=== PATIENT | male | born 1980 | race Caucasian/White ===

== ENCOUNTER 2019-01-04 13:35 | Emergency (ER) | payer MEDICAID, MEDICARE ==
--- NOTE | 2019-01-04 14:39 | EDM.PDOC ---
ED HPI GENERAL MEDICAL PROBLEM - General Chief Complaint: General Stated Complaint: JAW AND NECK PAIN Time Seen by Provider: 01/04/19 14:27 Source of Information: Reports: Patient History Limitations: Reports: No Limitations - History of Present Illness INITIAL COMMENTS - FREE TEXT/NARRATIVE: 38 yo Male present with concerns regarding left lower anterior tooth pain. Tooth pain started 2-3 days ago and has progressively worsened. Pain as a constant pressure and stabling pain that worsens with eating, chewing, hot or cold exposure. Patient admits to foul taste or drainage from painful tooth/ teeth. Patient has noted some slight facial swelling and along the gum line. Patient states has noted a chip in the effected tooth for years. Patient has attempted to contacted a dentist for follow-up appointment in the near future but needs referral to community dental clinic. Patient does not have a dentist appointment. Patient has taken any OTC some medications Oragel, to help with pain and/or swelling. The OTC medications minimally improved symptoms. Patient denies any fever, chills, sweats, and shortness of breath, difficulty breathing or swallowing, chest pain, diarrhea, constipation. No pain or burning with urination. No upper respiratory tract symptoms. 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 Social & Family History - Tobacco Use Smoking Status *Q: Current Every Day Smoker Years of Tobacco use: 16 Packs/Tins Daily: 0.5 - Caffeine Use Caffeine Use: Reports: Coffee, Soda, Tea - Recreational Drug Use Recreational Drug Use: No ED ROS GENERAL - Review of Systems Review Of Systems: ROS reveals no pertinent complaints other than HPI. ED EXAM, GENERAL - Physical Exam Exam: See Below Free Text/Narrative:: DENTAL: EXAM General: Alert attentive uncomfortable to due tooth pain. Eyes: Pupils are equal and reactive to light. EOMs intact. Conjunctivae without injection. Nose: Patent bilaterally. Mouth: Chipped tooth/teeth noted left anterior lower incisor jaw. Tooth pain over left anterior lower incisor gum line with slight buccal mucosal swelling noted. Dental apical abscess is not with visualization or palpation over the affected tooth nerve root. Posterior oropharynx: No erythema, tonsillar exudates or enlargement noted. Ears: TMs pearly zambrano, landmarks visualized. Neck: Supple. No midline tenderness. Full range of motion. No meningismus. Mild anterior cervical chain lymphadenopathy noted. Heart: Regular rate and rhythm without murmur. Chest: Clear to auscultation with good respiratory rate. No rhonchi, wheezes or rales heard throughout. No chest wall tenderness to palpation or retractions. Exam Limited By: No Limitations Course - Vital Signs Last Recorded V/S: Last Vital Signs Temp 36.6 C 01/04/19 13:56 Pulse 72 01/04/19 13:56 Resp 16 01/04/19 13:56 BP 144/92 H 01/04/19 13:56 Pulse Ox 98 01/04/19 13:56 - Re-Assessments/Exams Free Text/Narrative Re-Assessment/Exam: Visit Evaluation/Treatment Course: Exam is completed shortly after patient arrived in examination room. [facility] was reviewed for patient's previous visits, past medical history, surgical history, current medications, allergies and immunizations. Offered NSAIDs medications and Dental Nerve Block for pain control. Discussed medications given. Discussed NSAID, Tylenol, mouth wash and Sensodyne tooth paste. Patient is instructed to see or contact dentist of choice for evaluation and further treatment. Patient is given numerous follow-up dental care options. The patient has no questions or continued concerns at time of discharge. 01/04/19 14:31 Departure - Departure Time of Disposition: 14:43 Disposition: Home, Self-Care 01 Clinical Impression: Dental abscess, Infected dental carries - Discharge Information Prescriptions: Naproxen [Naprosyn] 500 mg PO Q8HR PRN #30 tablet PRN Reason: Pain Penicillin V Potassium 500 mg PO Q8HR #30 tab Chlorhexidine Gluconate 0.12% [Peridex 0.12% Rinse] 480 ml MM BID 10 Days #473 ml Instructions: Dental Abscess Referrals: PCP,None [Primary Care Provider] - Forms: ED Department Discharge Additional Instructions: DENTAL 1. ANTIBIOTIC DIRECTED. Antibiotics (Amoxicillin/PCN or Clindamycin). 2. IBUPROFEN or NAPROXEN WITH FOOD DIRECTED FOR INFLAMMATION, PAIN AND SWELLING. 3. Peridex mouth wash as directed. 4. Sensodyne tooth paste apply until pain improves. 5. Tylenol (Acetaminophen) every 6-8 hours for mild to moderate pain 6. CALL YOUR DENTIST OF CHOICE FOR AVAILABLE APPOINTMENT. IF YOU DO NOT HAVE A DENTIST, YOU WILL BE GIVEN THE PHONE NUMBER FOR LOCAL [facility] DENTIST. 7. Referral Letter Completed to [facility]. Discharge Instructions Dental Pain You have been seen today for a toothache. Your pain may be caused by an exposed nerve, an infection (pulpitis), a root abscess (pocket of pus), or other problems. You will need to see a dentist for a solution to your tooth problem. Emergency Department care is only to help control your problem until you can see a dentist; we cannot provide complete dental care. Today, we did not find any sign that your toothache was caused by any dangerous or life-threatening condition, but sometimes symptoms develop over time and cannot be found during an emergency visit, so it is very important that you follow up with your dentist. Please follow-up as instructed by your provider today. Return to the clinic or Local Emergency Department if: You develop a new fever over 100.4F. You cannot open your mouth normally, cannot move your tongue well, or cannot swallow. You have new or increased swelling of your face or neck. You develop drainage of pus or foul smelling material from around your tooth. What can I do to help myself? Take any antibiotic the provider may have prescribed for you today. Avoid very hot or very cold foods as both can cause pain. Make an appointment to see a dentist as soon as possible. Dentists are generally not on-staff at hospitals so we cannot refer to you to dentist but we may be able to provide a list of dental clinics to help you. If you were given a prescription for medicine here today, be sure toread all of the information (including the package insert) that comes with your prescription. This will include important information about the medicine, its side effects, and any warnings that you need to know about. The pharmacist who fills the prescription can provide more information and answer questions you may have about the medicine. If you have questions or concerns that the pharmacist cannot address, please call or return to the Emergency Department. Remember that you can always come back to the Emergency Department if you are not able to see your regular provider in the amount of time listed above, if you get any new symptoms, or if there is anything that worries you. - Assessment/Plan Plan: DENTAL 1. ANTIBIOTIC DIRECTED. Antibiotics (Amoxicillin/PCN or Clindamycin). 2. IBUPROFEN or NAPROXEN WITH FOOD DIRECTED FOR INFLAMMATION, PAIN AND SWELLING. 3. Peridex mouth wash as directed. 4. Sensodyne tooth paste apply until pain improves. 5. Tylenol (Acetaminophen) every 6-8 hours for mild to moderate pain 6. CALL YOUR DENTIST OF CHOICE FOR AVAILABLE APPOINTMENT. IF YOU DO NOT HAVE A DENTIST, YOU WILL BE GIVEN THE PHONE NUMBER FOR LOCAL [facility] DENTIST. 7. Referral Letter Completed to [facility].
== END 2019-01-04 15:02 | disposition home or self-care (01) ==
LOC: JP.ED 13:35
DX: K04.7 Periapical abscess without sinus (principal); K02.9 Dental caries, unspecified; F17.210 Nicotine dependence, cigarettes, uncomplicated; Z79.899 Other long term (current) drug therapy
CPT/HCPCS: 99283

== ENCOUNTER 2019-03-06 19:54 | Emergency (ER) | payer MEDICAID ==
[2019-03-06] MEDS ORDERED: cefTRIAXone 1 GM Vial IM ONE (20:47)
[2019-03-06] MEDS ORDERED: Ketorolac 60 MG/2 ML SDV IM ONE (20:50)
[2019-03-06] MEDS ORDERED: HYDROmorphone 1 MG/ML Syringe IM ONE (20:51)
--- NOTE | 2019-03-06 21:05 | EDM.PDOC ---
ED HPI GENERAL MEDICAL PROBLEM - General Chief Complaint: ENT Problem Stated Complaint: TOOTH INFECTION LEFT SIDE OF MOUTH Time Seen by Provider: 03/06/19 20:59 History Limitations: Reports: No Limitations - History of Present Illness INITIAL COMMENTS - FREE TEXT/NARRATIVE: 38 years old male patient presented with chief complaint of left lower toothache has been going on for a month. Was seen a month ago was given antibiotic prescription and he did not fill it because he could could not afford it. Come in today was left sided facial swelling, worsening pain. Denies any fever. Denies any chest pain or shortness breath. No difficulty swallowing or breathing. Denies any dizziness. 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 Neurological History: Reports: Other (See Below) Other Neuro History: rare form of polyneuropathy Psychiatric History: Reports: ADD, Anxiety, Panic Attack, PTSD Social & Family History - Tobacco Use Smoking Status *Q: Current Every Day Smoker Years of Tobacco use: 18 Packs/Tins Daily: 0.5 - Caffeine Use Caffeine Use: Reports: Energy Drinks, Soda - Recreational Drug Use Recreational Drug Use: No ED ROS ENT - Review of Systems Review Of Systems: ROS reveals no pertinent complaints other than HPI. ED EXAM, ENT - Physical Exam Exam: See Below Exam Limited By: No Limitations General Appearance: Alert, WD/WN, No Apparent Distress Ears: Normal External Exam, Normal Canal, Hearing Grossly Normal, Normal TMs Nose: Normal Inspection, Normal Mucousa, No Blood Mouth/Throat: Dental Abcess, Dental Pain, Dental Tenderness. No: Oral Ulcers, Peritonsillar Mass, Pharyngeal Erythema, Throat Pain, Throat Swelling, Tongue Swelling, Tonsillar Erythema, Tonsillar Exudates Head: Atraumatic, Normocephalic Neck: Normal Inspection, Supple, Non-Tender, Full Range of Motion Respiratory/Chest: No Respiratory Distress, Lungs Clear, Normal Breath Sounds, No Accessory Muscle Use, Chest Non-Tender Cardiovascular: Normal Peripheral Pulses, Regular Rate, Rhythm, No Edema, No Gallop, No JVD, No Murmur, No Rub GI/Abdominal: Normal Bowel Sounds, Soft, Non-Tender, No Organomegaly, No Distention, No Abnormal Bruit, No Mass Back: Normal Inspection, Full Range of Motion Extremities: Normal Inspection, Normal Range of Motion, Non-Tender, No Pedal Edema, Normal Capillary Refill Neurological: Alert, Oriented, CN II-XII Intact, Normal Cognition, Normal Gait, Normal Reflexes, No Motor/Sensory Deficits Skin: Warm, Dry, Intact, Normal Color, No Rash Course - Vital Signs Last Recorded V/S: Last Vital Signs Temp 36.8 C 03/06/19 20:09 Pulse 84 03/06/19 20:09 Resp 14 03/06/19 20:09 BP 139/89 03/06/19 20:09 Pulse Ox 97 03/06/19 20:09 - Orders/Labs/Meds Meds: Medications Discontinued Medications Generic Name Dose Route Start Last Admin Trade Name Zahida PRN Reason Stop Dose Admin Ceftriaxone Sodium 1 gm 03/06/19 20:47 Rocephin IM 03/06/19 20:48 ONETIME ONE Hydromorphone HCl 1 mg 03/06/19 20:51 Dilaudid IM 03/06/19 20:52 ONETIME ONE Ketorolac Tromethamine 60 mg 03/06/19 20:50 Toradol IM 03/06/19 20:51 ONETIME ONE - Radiology Interpretation Free Text/Narrative:: Patient was seen and examined shortly after arrival. Stable. Patient stated that still could not afford antibiotic. Patient was givn 1 g IM Rocephin, 60 milligrams IM Toradol, 1 mg IM Dilaudid. Was given a referral for community dentist in the morning at 8:15.am. Advised to come back if symptom worsen. Advised to continue use Tylenol or ibuprofen as needed for pain, Orajel, do not drive oral. Machines when taking narcotics. Patient agrees with the plan. Stable for discharge. Departure - Departure Time of Disposition: 21:05 Disposition: Home, Self-Care 01 Condition: Good, Fair Clinical Impression: Dental abscess - Discharge Information Instructions: Dental Abscess Referrals: PCP,None [Primary Care Provider] - Care Plan Goals: Follow-up with the dentist in the morning. Come back if symptom worsen Use Tylenol or ibuprofen as needed for pain Orajel Do not drive or operate machines been taking narcotic - Assessment/Plan Plan: Follow-up with the dentist in the morning. Come back if symptom worsen Use Tylenol or ibuprofen as needed for pain Orajel Do not drive or operate machines been taking narcotic
[2019-03-06] MEDS ORDERED: oxyCODONE 5 MG Tab PO ONE (21:08)
== END 2019-03-06 21:25 | disposition home or self-care (01) ==
LOC: JP.ED 19:54
DX: K04.7 Periapical abscess without sinus (principal); F17.210 Nicotine dependence, cigarettes, uncomplicated; F98.8 Other specified behavioral and emotional disorders with onset usually occurring in childhood and adolescence
CPT/HCPCS: 96372; 99282; A9270; J0696; J1170; J1885; 99283

== ENCOUNTER 2019-03-07 09:58 | Emergency (ER) | payer MEDICAID ==
[2019-03-07] MEDS ORDERED: Penicillin G Benzathine/Procaine 900-300 1.2 Millunits/2 ML Syringe IM ONE (10:44)
--- NOTE | 2019-03-07 10:52 | EDM.PDOC ---
ED HPI GENERAL MEDICAL PROBLEM - General Chief Complaint: ENT Problem Stated Complaint: SENT FROM DENTAL CLINIC Time Seen by Provider: 03/07/19 10:35 Source of Information: Reports: Patient History Limitations: Reports: No Limitations - History of Present Illness INITIAL COMMENTS - FREE TEXT/NARRATIVE: 38-year-old male was seen yesterday with left-sided jaw swelling and pain, was given Rocephin and sent to the dental clinic this morning. He was unable to fill his oral antibiotics As he has no money. The dental clinics on this morning , said he needs to stay any antibiotics until Monday before procedures done but he still can't afford it so he came to the emergency room. No fevers or chills. He does have significant swelling of the left mandible. Onset: Gradual Duration: Chronic (Dental pain has been chronic, swelling for several days) Location: Reports: Face Left Face/Facial Pain Score (Numeric/FACES): 10 - Related Data Allergies Allergy/AdvReac Type Severity Reaction Status Date / Time No Known Allergies Allergy Verified 03/07/19 10:05 Home Meds: Home Meds Chlorhexidine Gluconate 0.12% [Peridex 0.12% Rinse] 480 ml MM BID 10 Days #473 ml 01/04/19 [Rx] Naproxen [Naprosyn] 500 mg PO Q8HR PRN #30 tablet 01/04/19 [Rx] Penicillin V Potassium 500 mg PO Q8HR #30 tab 01/04/19 [Rx] Past Medical History Gastrointestinal History: Reports: GERD Musculoskeletal History: Reports: Other (See Below) Other Musculoskeletal History: 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 Neurological History: Reports: Other (See Below) Other Neuro History: rare form of polyneuropathy Psychiatric History: Reports: ADD, Anxiety, Panic Attack, PTSD Social & Family History - Tobacco Use Smoking Status *Q: Current Every Day Smoker Years of Tobacco use: 18 Packs/Tins Daily: 1 - Caffeine Use Caffeine Use: Reports: Coffee, Soda - Recreational Drug Use Recreational Drug Use: No ED ROS ENT - Review of Systems Review Of Systems: See Below Constitutional: Reports: Malaise. Denies: Fever, Chills HEENT: Reports: Other (Dental pain, facial swelling left side) Respiratory: Reports: No Symptoms GI/Abdominal: Denies: Nausea, Vomiting Neurological: Reports: Other (Does have a polyneuropathy, wears braces on his lower extremities). Denies: Headache ED EXAM, ENT - Physical Exam Exam: See Below Exam Limited By: No Limitations General Appearance: Alert, No Apparent Distress (Looks uncomfortable but not distressed) Mouth/Throat: Other (There is swelling along the left mandible with tenderness to palpation. No fluctuance. No significant erythema.) Course - Vital Signs Last Recorded V/S: Last Vital Signs Temp 99.1 F 03/07/19 10:15 Pulse 66 03/07/19 10:15 Resp 16 03/07/19 10:15 BP 134/89 03/07/19 10:15 Pulse Ox 98 03/07/19 10:15 - Orders/Labs/Meds Meds: Medications Discontinued Medications Generic Name Dose Route Start Last Admin Trade Name Freq PRN Reason Stop Dose Admin Penicillin G Procaine/Benzathine 1.2 millunits 03/07/19 10:44 03/07/19 10:55 Bicillin C-R 900/300 IM 03/07/19 10:45 1.2 millunits ONETIME ONE Administration - Re-Assessments/Exams Free Text/Narrative Re-Assessment/Exam: 03/07/19 10:49 Patient was given an injection of 900/300 Bicillin, and will be started on penicillin 500 mg 4 times a day. Ibuprofen will help with pain, return if worsening despite antibiotic. Antibiotics will be paid with the compassion fund by the Hospital. Departure - Departure Time of Disposition: 11:20 Disposition: Home, Self-Care 01 Condition: Good Clinical Impression: Dental abscess - Discharge Information Instructions: Dental Abscess Referrals: PCP,None [Primary Care Provider] - Forms: ED Department Discharge Care Plan Goals: Take antibiotic 4 times a day and recheck as scheduled with the dentist on Monday. Return if worsening despite treatment.
== END 2019-03-07 11:28 | disposition home or self-care (01) ==
LOC: JP.ED 09:58
DX: K04.7 Periapical abscess without sinus (principal); F17.210 Nicotine dependence, cigarettes, uncomplicated
CPT/HCPCS: 96372; 99283; J0558

== ENCOUNTER 2020-03-06 01:51 | Inpatient (IN) | payer MEDICARE, MEDICAID ==
[2020-03-06] MEDS ORDERED: LORazepam 2 MG/ML SDV IVPUSH ONE (02:04)
--- NOTE | 2020-03-06 02:08 | EDM.PDOC ---
ED HPI GENERAL MEDICAL PROBLEM - General Chief Complaint: Abdominal Pain Stated Complaint: ABD PAIN Time Seen by Provider: 03/06/20 02:01 Source of Information: Reports: Patient, EMS, RN Notes Reviewed History Limitations: Reports: No Limitations - History of Present Illness INITIAL COMMENTS - FREE TEXT/NARRATIVE: 39-year-old gentleman presents emergency department a complaint of sudden onset of pain left side upper abdomen, this occurred while he was playing video games this morning. He is now developed pain in his neck as well as his elbow. He is also complaining of shortness of breath. 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 Report Left Upper Abdomen Pain Score (Numeric/FACES): 7 - Related Data Allergies Allergy/AdvReac Type Severity Reaction Status Date / Time No Known Allergies Allergy Verified 03/06/20 01:57 Home Meds: Home Meds FLUoxetine HCl [Fluoxetine HCl] 40 mg PO BID 03/06/20 [History] Famotidine [Acid Controller] 10 mg PO BEDTIME 03/06/20 [History] Naproxen [Naprosyn] 500 mg PO DAILY 03/06/20 [History] hydrOXYzine HCL [Hydroxyzine HCl] 25 mg PO QID PRN 03/06/20 [History] Past Medical History Gastrointestinal History: Reports: GERD Musculoskeletal History: Reports: Other (See Below) Other Musculoskeletal History: 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 Neurological History: Reports: Other (See Below) Other Neuro History: rare form of polyneuropathy Psychiatric History: Reports: ADD, Anxiety, Panic Attack, PTSD Social & Family History - Tobacco Use Smoking Status *Q: Current Every Day Smoker Years of Tobacco use: 18 Packs/Tins Daily: 0.2 - Caffeine Use Caffeine Use: Reports: Coffee, Energy Drinks, Soda - Recreational Drug Use Recreational Drug Use: No ED ROS GENERAL - Review of Systems Review Of Systems: See Below Constitutional: Denies: Fever, Chills HEENT: Reports: No Symptoms Respiratory: Reports: No Symptoms Cardiovascular: Reports: Chest Pain GI/Abdominal: Reports: Abdominal Pain. Denies: Nausea, Vomiting : Reports: No Symptoms Musculoskeletal: Reports: No Symptoms Skin: Reports: No Symptoms Neurological: Reports: No Symptoms ED EXAM, GENERAL - Physical Exam Exam: See Below Exam Limited By: No Limitations General Appearance: Alert, Moderate Distress Respiratory/Chest: No Respiratory Distress, Lungs Clear, Normal Breath Sounds, No Accessory Muscle Use, Chest Non-Tender Cardiovascular: Regular Rate, Rhythm, No Murmur GI/Abdominal: Soft, Non-Tender Course - Vital Signs Last Recorded V/S: Last Vital Signs Temp 98.7 F 03/06/20 01:52 Pulse 86 03/06/20 03:58 Resp 20 03/06/20 03:59 BP 134/85 03/06/20 03:58 Pulse Ox 98 03/06/20 03:59 - Orders/Labs/Meds Orders: Active Orders 24 hr Category Date Time Status Chest 1V Frontal [CR] Stat Exams 03/06/20 02:05 Taken Heparin Sodium Med 03/06/20 03:59 Once 5,000 units IVPUSH .BOLUS ONE Heparin Sodium/D5W [Heparin 25,000 Units in D5W 500 ML] Med 03/06/20 04:00 Ordered 25,000 units in 500 ml IV TITRATE Iopamidol [Isovue-370 (76%)] Med 03/06/20 03:15 Active 100 ml IV . DIRECTED Sodium Chloride 0.9% [Normal Saline] 100 ml Med 03/06/20 03:15 Active IV ASDIRECTED Medication Orders Heparin Sodium (Porcine) (Heparin Sodium) 5,000 units IVPUSH .BOLUS ONE; Protocol Stop: 03/06/20 04:00 Sodium Chloride (Normal Saline) 100 mls @ 3 mls/sec IV ASDIRECTED HETAL Last Admin: 03/06/20 03:26 Dose: 3 mls/sec Documented by: ANA Heparin Sodium/Dextrose (Heparin 25,000 Units In D5w 500 Ml) 25,000 units in 500 mls @ 24.494 mls/hr IV TITRATE HETAL; Protocol Iopamidol (Isovue-370 (76%)) 100 ml IV . DIRECTED HETAL Last Admin: 03/06/20 03:26 Dose: 100 ml Documented by: ANA Labs: Laboratory Tests 03/06/20 03/06/20 03/06/20 Range/Units 02:10 02:10 02:10 WBC 11.0 (4.5-11.0) K/uL RBC 4.98 (4.30-5.90) M/uL Hgb 15.1 H (12.0-15.0) g/dL Hct 45.7 (40.0-54.0) % MCV 92 (80-98) fL MCH 30 (27-31) pg MCHC 33 (32-36) % Plt Count 203 (150-400) K/uL Neut % (Auto) 72 H (36-66) % Lymph % (Auto) 19 L (24-44) % [place] % (Auto) 8 H (2-6) % Eos % (Auto) 1 L (2-4) % Baso % (Auto) 1 (0-1) % D-Dimer, Quantitative 2140 H (0.0-400.0) ng/mL Sodium 136 L (140-148) mmol/L Potassium 3.3 L (3.6-5.2) mmol/L Chloride 101 (100-108) mmol/L Carbon Dioxide 22 (21-32) mmol/L Anion Gap 16.3 H (5.0-14.0) mmol/L BUN 9 (7-18) mg/dL Creatinine 1.0 (0.8-1.3) mg/dL Est Cr Clr Drug Dosing 97.33 mL/min Estimated GFR (MDRD) > 60 (>60) Glucose 104 (74-106) mg/dL Calcium 8.9 (8.5-10.1) mg/dL Troponin I (0.000-0.056) ng/mL Lipase (73-393) U/L 03/06/20 03/06/20 Range/Units 02:10 02:10 WBC (4.5-11.0) K/uL RBC (4.30-5.90) M/uL Hgb (12.0-15.0) g/dL Hct (40.0-54.0) % MCV (80-98) fL MCH (27-31) pg MCHC (32-36) % Plt Count (150-400) K/uL Neut % (Auto) (36-66) % Lymph % (Auto) (24-44) % [place] % (Auto) (2-6) % Eos % (Auto) (2-4) % Baso % (Auto) (0-1) % D-Dimer, Quantitative (0.0-400.0) ng/mL Sodium (140-148) mmol/L Potassium (3.6-5.2) mmol/L Chloride (100-108) mmol/L Carbon Dioxide (21-32) mmol/L Anion Gap (5.0-14.0) mmol/L BUN (7-18) mg/dL Creatinine (0.8-1.3) mg/dL Est Cr Clr Drug Dosing mL/min Estimated GFR (MDRD) (>60) Glucose (74-106) mg/dL Calcium (8.5-10.1) mg/dL Troponin I < 0.017 (0.000-0.056) ng/mL Lipase 240 (73-393) U/L Meds: Medications Generic Name Dose Route Start Last Admin Trade Name Freq PRN Reason Stop Dose Admin Heparin Sodium (Porcine) 5,000 units 03/06/20 03:59 Heparin Sodium IVPUSH 03/06/20 04:00 .BOLUS ONE Protocol Sodium Chloride 100 mls @ 3 mls/sec 03/06/20 03:15 03/06/20 03:26 Normal Saline IV 3 mls/sec ASDIRECTED HETAL Administration Heparin Sodium/Dextrose 25,000 units in 500 mls @ 24.494 mls/hr 03/06/20 04:00 Heparin 25,000 Units In D5w 500 Ml IV TITRATE HETAL Protocol 18 UNITS/KG/HR Iopamidol 100 ml 03/06/20 03:15 03/06/20 03:26 Isovue-370 (76%) IV 100 ml . DIRECTED HETAL Administration Discontinued Medications Generic Name Dose Route Start Last Admin Trade Name Freq PRN Reason Stop Dose Admin Lorazepam 1 mg 03/06/20 02:04 03/06/20 02:12 Ativan IVPUSH 03/06/20 02:05 1 mg ONETIME ONE Administration Departure - Departure Time of Disposition: 04:08 Disposition: Admitted As Inpatient 68 Condition: Fair Clinical Impression: Pulmonary embolism Qualifiers: Pulmonary embolism type: multiple subsegmental (without acute cor pulmonale) Qualified Code(s): I26.94 - Multiple subsegmental pulmonary emboli without acute cor pulmonale - Discharge Information Referrals: PCP,None [Primary Care Provider] - Forms: ED Department Discharge Sepsis Event Note (ED) - Evaluation Sepsis Screening Result: No Definite Risk - Focused Exam Vital Signs: Vital Signs Temp Pulse Resp BP Pulse Ox 03/06/20 03:59 20 98 03/06/20 03:58 86 134/85 03/06/20 03:25 97 118/82 03/06/20 02:34 89 114/74 03/06/20 01:52 98.7 F 89 28 H 127/81 98 - My Orders Last 24 Hours: My Active Orders 03/06/20 02:05 Chest 1V Frontal [CR] Stat 03/06/20 03:15 Iopamidol [Isovue-370 (76%)] 100 ml IV . DIRECTED Sodium Chloride 0.9% [Normal Saline] 100 ml IV ASDIRECTED 03/06/20 03:59 Heparin Sodium 5,000 units IVPUSH .BOLUS ONE 03/06/20 04:00 Heparin Sodium/D5W [Heparin 25,000 Units in D5W 500 ML] 25,000 units in 500 ml IV TITRATE - Assessment/Plan Last 24 Hours: My Active Orders 03/06/20 02:05 Chest 1V Frontal [CR] Stat 03/06/20 03:15 Iopamidol [Isovue-370 (76%)] 100 ml IV . DIRECTED Sodium Chloride 0.9% [Normal Saline] 100 ml IV ASDIRECTED 03/06/20 03:59 Heparin Sodium 5,000 units IVPUSH .BOLUS ONE 03/06/20 04:00 Heparin Sodium/D5W [Heparin 25,000 Units in D5W 500 ML] 25,000 units in 500 ml IV TITRATE Plan: Assessment Acuity = acute Site and laterality = bilateral lower pulmonary embolism Etiology = unknown Manifestations = dyspnea Location of injury = Home Lab values = d-dimer elevated at 2150, CBC unremarkable potassium low at 3.[address] scan describes bilateral pulmonary embolism Plan Call discussed case with hospitalist on-call at [phone] currently agreed to come and evaluate the patient for admission to the hospital elected to proceed with hospital admission due to the ongoing dyspnea This note was dictated using [employer] voice recognition software please call with any questions on syntax or grammar.
[2020-03-06] MEDS ORDERED: Iopamidol 755 Mg/ML 100 ML Bottle IV SCH (03:15)
[2020-03-06] MEDS ORDERED: Sodium Chloride 0.9% 100 ML IV SCH (03:15)
--- NOTE | 2020-03-06 03:55 | CRLCT ---
INDICATION: Shortness of breath, tachypnea, elevated d-dimer TECHNIQUE: CT chest with i.v. contrast using pulmonary angiographic technique. Coronal and sagittal reformats were obtained. CONTRAST: 100 mL Isovue 370 COMPARISON: None FINDINGS: Cardiovascular: Severe acute pulmonary emboli present in the lower lobes bilaterally. Diffuse ground-glass infiltrates are present throughout the left lung base which may be due to atelectasis and/or pulmonary hemorrhage associated the embolic phenomena. The heart has an unremarkable appearance and size. No sign of aneurysm in the thoracic aorta. Mediastinum: There is a 9 mm AP window lymph node present and a 1.4 cm right paratracheal lymph node seen. Lung: Mild right basilar ground-glass atelectasis is seen. Pleura and pericardium: Trace left pleural effusion is present. No significant pericardial effusion is present. Chest wall and axilla: No mass or adenopathy seen. Bone: Unremarkable for age. Upper abdomen: Unremarkable. IMPRESSIONS: 1. Severe acute pulmonary emboli present in the lower lobes bilaterally. The RV-LV ratio is approximately 0.9. 2. Right paratracheal adenopathy is noted and is of uncertain etiology. The findings were discussed with Officer at 3:54 AM. Dictated by Ashkan Mcmahon MD @ 03/06/2020 3:54:36 AM Please note that all CT scans at this facility use dose modulation, iterative reconstruction, and/or weight-based dosing when appropriate to reduce radiation dose to as low as reasonably achievable. Dictated by: Ashkan Mcmahon MD @ 03/06/2020 03:54:48 (Electronically Signed)
[2020-03-06] MEDS ORDERED: Heparin Sodium 5,000 Units/ML Vial IVPUSH ONE (03:59)
[2020-03-06] MEDS: Heparin Sodium/D5W 25,000 UNITS/500 ML BAG IV SCH (04:13)
[2020-03-06] MEDS ORDERED: HYDROmorphone 1 MG/ML Syringe IVPUSH ONE (04:51)
--- NOTE | 2020-03-06 05:17 | PCM.HP.2 ---
H&P History of Present Illness - General Date of Service: 03/06/20 Admit Problem/Dx: Admission Diagnosis/Problem Admission Diagnosis/Problem Pulmonary embolism Source of Information: Patient, EMS Notes Reviewed, Provider, RN History Limitations: Reports: No Limitations - History of Present Illness Initial Comments - Free Text/Narative: chief complaint: shortness of breath 39-year-old gentleman presents emergency department a complaint of sudden onset of pain left side upper abdomen, this occurred while he was playing video games this morning. He is now developed pain in his neck as well as his elbow. He is also complaining of shortness of breath. 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 Onset of Symptoms: Reports: Today, Sudden Duration of Symptoms: Reports: Hour(s): Location: Reports: Chest Quality: Reports: Sharp, Stabbing Improves with: Reports: Rest Worsens with: Reports: Movement Associated Symptoms: Reports: Chest Pain (left sided greater than right), Shortness of Breath Left Upper Abdomen Pain Score (Numeric/FACES): 7 - Related Data Allergies/Adverse Reactions: Allergies Allergy/AdvReac Type Severity Reaction Status Date / Time No Known Allergies Allergy Verified 03/06/20 01:57 Home Medications: Home Meds FLUoxetine HCl [Fluoxetine HCl] 40 mg PO BID 03/06/20 [History] Famotidine [Acid Controller] 10 mg PO BEDTIME 03/06/20 [History] Naproxen [Naprosyn] 500 mg PO DAILY 03/06/20 [History] hydrOXYzine HCL [Hydroxyzine HCl] 25 mg PO QID PRN 03/06/20 [History] Past Medical History Gastrointestinal History: Reports: GERD Musculoskeletal History: Reports: Other (See Below) Other Musculoskeletal History: 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 Neurological History: Reports: Other (See Below) Other Neuro History: rare form of polyneuropathy Psychiatric History: Reports: ADD, Anxiety, Panic Attack, PTSD Social & Family History - Tobacco Use Smoking Status *Q: Current Every Day Smoker Years of Tobacco use: 18 Packs/Tins Daily: 0.2 - Caffeine Use Caffeine Use: Reports: Coffee, Energy Drinks, Soda - Recreational Drug Use Recreational Drug Use: No - Living Situation & Occupation Living situation: Reports: , Other (lives with Friend Syed and his f basilio. disabled.) Occupation: Disabled H&P Review of Systems - Review of Systems: Review Of Systems: See Below General: Reports: Other (sudden onset of chest pain with shortness of breath) HEENT: Reports: No Symptoms Pulmonary: Reports: Shortness of Breath, Pleuritic Chest Pain Cardiovascular: Reports: No Symptoms Gastrointestinal: Reports: No Symptoms Genitourinary: Reports: No Symptoms Musculoskeletal: Reports: Other (bilalteral leg weakness due to chronic disease. 100% wheelchair. 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 ) Hematologic/Lymphatic: Reports: No Symptoms Immunologic: Reports: No Symptoms Exam - Exam Exam: See Below - Vital Signs Vital Signs: Last Vital Signs Temp 37.1 C 03/06/20 01:52 Pulse 95 03/06/20 05:01 Resp 21 H 03/06/20 05:01 BP 122/74 03/06/20 05:01 Pulse Ox 97 03/06/20 05:01 Weight: 68.039 kg - Exam Quality Assessment: DVT Prophylaxis General: Alert, Oriented, Cooperative, Moderate Distress (sitting upright, speaking in one word sentences, reports lung/chest pain at 7 out of 10) HEENT: PERRLA, Conjunctiva Clear, EACs Clear, EOMI, Hearing Intact, Mucosa Moist & [place], Nares Patent Neck: Supple, Trachea Midline Lungs: Clear to Auscultation, Normal Respiratory Effort, Decreased Breath Sounds Cardiovascular: Regular Rate, Regular Rhythm, Normal S1, Normal S2 GI/Abdominal Exam: Normal Bowel Sounds, Soft, Non-Tender (Male) Exam: Deferred Rectal (Males) Exam: Deferred Extremities: Normal Capillary Refill, Limited Range of Motion (no movement of legs noted) Peripheral Pulses: 2+: Radial (L), Radial (R) Skin: Warm, Dry, Intact Neurological: Other (polyneuropathy with lower leg impairment) Neuro Extensive - Mental Status: Alert, Oriented x3, Normal Mood/Affect Neuro Extensive - Motor, Sensory, Reflexes: Motor/Sensory Deficits Psychiatric: Anxious - Patient Data Lab Results Last 24 hrs: Laboratory Results - last 24 hr 03/06/20 03/06/20 03/06/20 Range/Units 02:10 02:10 02:10 WBC 11.0 (4.5-11.0) K/uL RBC 4.98 (4.30-5.90) M/uL Hgb 15.1 H (12.0-15.0) g/dL Hct 45.7 (40.0-54.0) % MCV 92 (80-98) fL MCH 30 (27-31) pg MCHC 33 (32-36) % Plt Count 203 (150-400) K/uL Neut % (Auto) 72 H (36-66) % Lymph % (Auto) 19 L (24-44) % [place] % (Auto) 8 H (2-6) % Eos % (Auto) 1 L (2-4) % Baso % (Auto) 1 (0-1) % D-Dimer, Quantitative 2140 H (0.0-400.0) ng/mL Sodium 136 L (140-148) mmol/L Potassium 3.3 L (3.6-5.2) mmol/L Chloride 101 (100-108) mmol/L Carbon Dioxide 22 (21-32) mmol/L Anion Gap 16.3 H (5.0-14.0) mmol/L BUN 9 (7-18) mg/dL Creatinine 1.0 (0.8-1.3) mg/dL Est Cr Clr Drug Dosing 97.33 mL/min Estimated GFR (MDRD) > 60 (>60) Glucose 104 (74-106) mg/dL Calcium 8.9 (8.5-10.1) mg/dL Troponin I (0.000-0.056) ng/mL Lipase (73-393) U/L 03/06/20 03/06/20 Range/Units 02:10 02:10 WBC (4.5-11.0) K/uL RBC (4.30-5.90) M/uL Hgb (12.0-15.0) g/dL Hct (40.0-54.0) % MCV (80-98) fL MCH (27-31) pg MCHC (32-36) % Plt Count (150-400) K/uL Neut % (Auto) (36-66) % Lymph % (Auto) (24-44) % [place] % (Auto) (2-6) % Eos % (Auto) (2-4) % Baso % (Auto) (0-1) % D-Dimer, Quantitative (0.0-400.0) ng/mL Sodium (140-148) mmol/L Potassium (3.6-5.2) mmol/L Chloride (100-108) mmol/L Carbon Dioxide (21-32) mmol/L Anion Gap (5.0-14.0) mmol/L BUN (7-18) mg/dL Creatinine (0.8-1.3) mg/dL Est Cr Clr Drug Dosing mL/min Estimated GFR (MDRD) (>60) Glucose (74-106) mg/dL Calcium (8.5-10.1) mg/dL Troponin I < 0.017 (0.000-0.056) ng/mL Lipase 240 (73-393) U/L Result Diagrams: 03/06/20 02:10 03/06/20 02:10 Sepsis Event Note - Evaluation Sepsis Screening Result: No Definite Risk - Focused Exam Vital Signs: Vital Signs Temp Pulse Resp BP Pulse Ox 03/06/20 05:01 95 21 H 122/74 97 03/06/20 04:26 89 21 H 124/81 99 03/06/20 03:59 20 98 03/06/20 03:58 86 134/85 03/06/20 03:25 97 118/82 03/06/20 02:34 89 114/74 03/06/20 01:52 37.1 C 89 28 H 127/81 98 Date Exam was Performed: 03/06/20 Time Exam was Performed: 05:11 - Problem List (1) Pulmonary embolism SNOMED Code(s): 57932080 ICD Code: I26.99 - OTHER PULMONARY EMBOLISM WITHOUT ACUTE COR PULMONALE Status: Acute Priority: High Current Visit: Yes Qualifiers: Pulmonary embolism type: multiple subsegmental (without acute cor pulmonale) Qualified Code(s): I26.94 - Multiple subsegmental pulmonary emboli without acute cor pulmonale (2) Polyneuropathy associated with underlying disease SNOMED Code(s): 356151929 ICD Code: G63 - POLYNEUROPATHY IN DISEASES CLASSIFIED ELSEWHERE Status: Acute Priority: High Current Visit: Yes (3) Cigarette smoker one half pack a day or less SNOMED Code(s): 765592667 ICD Code: F17.210 - NICOTINE DEPENDENCE, CIGARETTES, UNCOMPLICATED Status: Acute Current Visit: Yes (4) Anxiety SNOMED Code(s): 74272668 ICD Code: F41.9 - ANXIETY DISORDER, UNSPECIFIED Status: Acute Current Visit: Yes Problem List Initiated/Reviewed/Updated: Yes Orders Last 24hrs: Active Orders 24 hr Category Date Time Status Patient Status Manage Transfer [TRANSFER] Routine ADT 03/06/20 04:53 Ordered Chest 1V Frontal [CR] Stat Exams 03/06/20 02:05 Taken Heparin Sodium/D5W [Heparin 25,000 Units in D5W 500 ML] Med 03/06/20 04:00 Active 25,000 units in 500 ml IV TITRATE Iopamidol [Isovue-370 (76%)] Med 03/06/20 03:15 Active 100 ml IV . DIRECTED Sodium Chloride 0.9% [Normal Saline] 100 ml Med 03/06/20 03:15 Active IV ASDIRECTED Resuscitation Status Routine Resus Stat 03/06/20 04:54 Ordered Medication Orders Sodium Chloride (Normal Saline) 100 mls @ 3 mls/sec IV ASDIRECTED HETAL Last Admin: 03/06/20 03:26 Dose: 3 mls/sec Documented by: ANA Heparin Sodium/Dextrose (Heparin 25,000 Units In D5w 500 Ml) 25,000 units in 500 mls @ 24.494 mls/hr IV TITRATE HETAL; Protocol Last Admin: 03/06/20 04:13 Dose: 18 units/kg/hr, 24.494 mls/hr Documented by: DANNI Cosigned by: DILLON Iopamidol (Isovue-370 (76%)) 100 ml IV . DIRECTED HETAL Last Admin: 03/06/20 03:26 Dose: 100 ml Documented by: ANA Assessment/Plan Comment:: Assessment/Plan Comment:: ASSESSMENT AND PLAN OF CARE: Pulmonary Emboli bilateral This is a 39 year old disabled male present to the ER via EMS for sudden onset of shortness of breath with chest pain while playing video games at his home.reports bilateral chest discomfort. denies cough. ER ; Chest CT reports cardiovascular structures. Severe acute pulmonary emboli present in the lower lobes bilaterally. diffuse ground-glass infiltrates are present throughout the left lung base which may be due to atelectasis and or pulmonary hemorrhage associated the embolic phenomena. Heart size is normal. NO sign of aneurysm in the thoracic aorta. Doppler ultrasound of legs pending admission. will admit to [address] [place] [address] pending further evaluation. Bilateral Pulmonary Emboli -Admit to [address] [place] [address] for further monitoring -IV Fluids Normal Saline 125ml/hr -Heparin drip per protocol -oxygen to keep sats greater than 95% -Ultrasound pending doppler bilateral legs-scheduled today -Advise to notify nurses of any chest pain or other symptoms -daily labs: CBC, BMP, INR, PT, PTT Polyneuropathy- rare inherited with bilateral leg numbness, weakness, muscle atrophy to thighs, unable to bear wt., 100% wheelchair, reports able to crawl to bed and chair as needed when at home. has control of bowel and bladder. -pressure reduction mattress -assist with ADL as needed -ambulates with AFO's and wheelchair Tobacco Use - reports smokes at least 1/2 pack or more of cigarettes daily. denies any other drug use -order for albuterol neb and duo nebs as needed. -Nicotine patch 14 mg. daily -Nicorette gum as needed Anxiety disorder -continue outpatient medication Maintenance issues -Orders home meds: chronic medication -Nutrition: regular diet -Chin catheter -not indicated at this time -DVT has PE/DVT Heparin drip per protocol -PPI IV Protonix 40mg daily CODE STATUS: FULL Admission status: Admit to [address] [place] [address] Admission justification. This patient will be admitted for inpatient services and is medically appropriate meeting medical necessity for inpatient admission as outlined in my documentation. I reasonably expect the patient will require inpatient services that span. Time over 2 midnights. I reasonably expect this patient to be discharged or transferred within 96 hours after admission to the critical access hospital. Disposition: home with Family Primary care provider: [facility] [place] Hospitalist: Dr. Harrison - Mortality Measure Prognosis:: Good
[2020-03-06] MEDS ORDERED: Docusate Sodium 100 MG Cap PO PRN (05:19)
[2020-03-06] MEDS ORDERED: Albuterol 0.083% 2.5 MG/3 ML Neb Soln NEB PRN (05:19)
[2020-03-06] MEDS ORDERED: Sodium Chloride 0.9% 1,000 ML IV SCH (05:19)
[2020-03-06] MEDS ORDERED: Ondansetron 4 MG Tab.DIS PO PRN (05:19)
[2020-03-06] MEDS ORDERED: Ondansetron 4 MG/2 ML SDV IV PRN (05:19)
[2020-03-06] MEDS ORDERED: LORazepam 2 MG/ML SDV IV PRN (05:19)
[2020-03-06] MEDS ORDERED: Acetaminophen 325 MG Tab PO PRN (05:19)
[2020-03-06] MEDS ORDERED: Nicotine Polacrilex 2 MG Gum CHEW PRN (05:19)
[2020-03-06] MEDS ORDERED: Acetaminophen/HYDROcodone 325-5 MG Tab PO PRN (05:19)
[2020-03-06] MEDS ORDERED: Bisacodyl 5 MG Tab PO PRN (05:19)
[2020-03-06] MEDS ORDERED: Pantoprazole 40 MG Vial IV SCH (09:00)
--- NOTE | 2020-03-06 09:04 | CR ---
CHEST: Portable 03/06/2020 2:21 AM CLINICAL HISTORY:SOB COMPARISON:None FINDINGS: There is patchy bibasal infiltrate. This is greater on the left. There is no effusion. Heart size and pulmonary vascularity are normal Impression: Bilateral lower lobe infiltrates left greater than right
[2020-03-06] MEDS: Nicotine 14 MG/24 Hr Patch TRDERM SCH (09:07)
[2020-03-06] MEDS: FLUoxetine 20 MG Cap PO SCH ×2 (09:07→14:07)
--- NOTE | 2020-03-06 09:07 | US ---
VL Duplex Lwr Ext Veins Comp CLINICAL HISTORY: Pulmonary emboli FINDINGS: There is normal flow and compressibility in the right common femoral and superficial femoral veins. There is thrombus in the popliteal vein which is noncompressible and no flow is seen. There is flow in the calf veins. IMPRESSION: DVT in the popliteal vein
--- NOTE | 2020-03-06 10:03 | PCM.PN ---
- General Info Date of Service: 03/06/20 Subjective Update: Mr. Mix is a 39-year-old gentleman who was admitted earlier this morning with shortness of breath and pleuritic chest pain secondary to bilateral pulmonary emboli. 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 He has been started on IV heparin and given medication for anxiety as well as pain. He is very sedated at the present time, lethargic and unable to provide a meaningful history concerning recent symptoms or review of systems. - Patient Data Vitals - Most Recent: Last Vital Signs Temp 97.3 F 03/06/20 05:45 Pulse 89 03/06/20 05:45 Resp 18 03/06/20 05:45 BP 136/78 03/06/20 05:45 Pulse Ox 96 03/06/20 07:29 Weight - Most Recent: 166 lb 14.239 oz Lab Results Last 24 Hours: Laboratory Results - last 24 hr 03/06/20 03/06/20 03/06/20 Range/Units 02:10 02:10 02:10 WBC 11.0 (4.5-11.0) K/uL RBC 4.98 (4.30-5.90) M/uL Hgb 15.1 H (12.0-15.0) g/dL Hct 45.7 (40.0-54.0) % MCV 92 (80-98) fL MCH 30 (27-31) pg MCHC 33 (32-36) % Plt Count 203 (150-400) K/uL Neut % (Auto) 72 H (36-66) % Lymph % (Auto) 19 L (24-44) % Branch % (Auto) 8 H (2-6) % Eos % (Auto) 1 L (2-4) % Baso % (Auto) 1 (0-1) % APTT (27.0-36.0) sec D-Dimer, Quantitative 2140 H (0.0-400.0) ng/mL Sodium 136 L (140-148) mmol/L Potassium 3.3 L (3.6-5.2) mmol/L Chloride 101 (100-108) mmol/L Carbon Dioxide 22 (21-32) mmol/L Anion Gap 16.3 H (5.0-14.0) mmol/L BUN 9 (7-18) mg/dL Creatinine 1.0 (0.8-1.3) mg/dL Est Cr Clr Drug Dosing 97.33 mL/min Estimated GFR (MDRD) > 60 (>60) Glucose 104 (74-106) mg/dL Calcium 8.9 (8.5-10.1) mg/dL Troponin I (0.000-0.056) ng/mL Lipase (73-393) U/L 03/06/20 03/06/20 03/06/20 Range/Units 02:10 02:10 08:18 WBC (4.5-11.0) K/uL RBC (4.30-5.90) M/uL Hgb (12.0-15.0) g/dL Hct (40.0-54.0) % MCV (80-98) fL MCH (27-31) pg MCHC (32-36) % Plt Count (150-400) K/uL Neut % (Auto) (36-66) % Lymph % (Auto) (24-44) % Branch % (Auto) (2-6) % Eos % (Auto) (2-4) % Baso % (Auto) (0-1) % APTT 55.8 H (27.0-36.0) sec D-Dimer, Quantitative (0.0-400.0) ng/mL Sodium (140-148) mmol/L Potassium (3.6-5.2) mmol/L Chloride (100-108) mmol/L Carbon Dioxide (21-32) mmol/L Anion Gap (5.0-14.0) mmol/L BUN (7-18) mg/dL Creatinine (0.8-1.3) mg/dL Est Cr Clr Drug Dosing mL/min Estimated GFR (MDRD) (>60) Glucose (74-106) mg/dL Calcium (8.5-10.1) mg/dL Troponin I < 0.017 (0.000-0.056) ng/mL Lipase 240 (73-393) U/L Med Orders - Current: Current Medications Acetaminophen (Tylenol) 650 mg PO Q4H PRN PRN Reason: Pain (Mild 1-3)/fever Hydrocodone Bitart/Acetaminophen ([place] 325-5 Mg) 1 tab PO Q4H PRN PRN Reason: Pain (moderate 4-6) Albuterol (Proventil Neb Soln) 2.5 mg NEB Q4H PRN PRN Reason: Shortness Of Breath/wheezing Bisacodyl (Dulcolax) 5 mg PO DAILY PRN PRN Reason: Constipation Docusate Sodium (Colace) 100 mg PO BID PRN PRN Reason: Constipation Fluoxetine HCl (Prozac) 40 mg PO BID@0800,1200 [facility] Last Admin: 03/06/20 09:07 Dose: 40 mg Documented by: Hydromorphone HCl (Dilaudid) 0.5 mg IVPUSH Q2H PRN PRN Reason: Pain (severe 7-10) Heparin Sodium/Dextrose (Heparin 25,000 Units In D5w 500 Ml) 25,000 units in 500 mls @ 24.494 mls/hr IV TITRATE [facility]; Protocol Last Admin: 03/06/20 04:13 Dose: 18 units/kg/hr, 24.494 mls/hr Documented by: Sodium Chloride (Normal Saline) 1,000 mls @ 75 mls/hr IV ASDIRECTED [facility] Nicotine (Habitrol) 14 mg TRDERM DAILY [facility] Last Admin: 03/06/20 09:07 Dose: 14 mg Documented by: Nicotine Polacrilex (Nicorelief) 2 mg CHEW Q2H PRN PRN Reason: Other Ondansetron HCl (Zofran Odt) 4 mg PO Q6H PRN PRN Reason: Nausea able to take PO Ondansetron HCl (Zofran) 4 mg IV Q4H PRN PRN Reason: Nausea/Vomiting Pantoprazole Sodium (Protonix Iv) 40 mg IV DAILY [facility] Last Admin: 03/06/20 09:07 Dose: 40 mg Documented by: Discontinued Medications Hydrocodone Bitart/Acetaminophen ([place] 325-5 Mg) 2 tab PO Q4H PRN PRN Reason: Pain (moderate 4-6) Last Admin: 03/06/20 05:51 Dose: 2 tab Documented by: Heparin Sodium (Porcine) (Heparin Sodium) 5,000 units IVPUSH .BOLUS ONE; Protocol Stop: 03/06/20 04:00 Last Admin: 03/06/20 04:12 Dose: 5,000 units Documented by: Hydromorphone HCl (Dilaudid) 1 mg IVPUSH ONETIME ONE Stop: 03/06/20 04:52 Last Admin: 03/06/20 04:58 Dose: 1 mg Documented by: Sodium Chloride (Normal Saline) 100 mls @ 3 mls/sec IV ASDIRECTED [facility] Last Admin: 03/06/20 03:26 Dose: 3 mls/sec Documented by: Sodium Chloride (Normal Saline) 1,000 mls @ 125 mls/hr IV ASDIRECTED [facility] Last Admin: 03/06/20 06:36 Dose: 125 mls/hr Documented by: Iopamidol (Isovue-370 (76%)) 100 ml IV . DIRECTED [facility] Last Admin: 03/06/20 03:26 Dose: 100 ml Documented by: Lorazepam (Ativan) 1 mg IVPUSH ONETIME ONE Stop: 03/06/20 02:05 Last Admin: 03/06/20 02:12 Dose: 1 mg Documented by: Lorazepam (Ativan) 1 mg IV Q6H PRN PRN Reason: Anxiety - Exam Quality Assessment: DVT Prophylaxis General: Sedated, Lethargic Lungs: Clear to Auscultation, Normal Respiratory Effort Cardiovascular: Regular Rate, Regular Rhythm, No Murmurs GI/Abdominal Exam: Soft, Non-Tender, No Organomegaly, No Distention Extremities: Non-Tender, No Pedal Edema Sepsis Event Note - Evaluation Sepsis Screening Result: No Definite Risk - Focused Exam Vital Signs: Vital Signs Temp Temp Pulse Resp BP Pulse Ox 03/06/20 07:29 96 03/06/20 05:45 97.3 F 89 18 136/78 95 03/06/20 05:01 95 21 H 122/74 97 03/06/20 04:26 89 21 H 124/81 99 03/06/20 03:59 20 98 03/06/20 03:58 86 134/85 03/06/20 03:25 97 118/82 03/06/20 02:34 89 114/74 03/06/20 01:52 98.7 F 89 28 H 127/81 98 Date Exam was Performed: 03/06/20 Time Exam was Performed: 10:00 - Problem List Review Problem List Initiated/Reviewed/Updated: Yes - My Orders Last 24 Hours: My Active Orders 03/06/20 09:57 Acetaminophen/HYDROcodone [[place] 325-5 MG] 1 tab PO Q4H PRN 03/06/20 10:00 Sodium Chloride 0.9% @ 75 MLS/HR(1000ml) Sodium Chloride 0.9% [Normal Saline] 1,000 ml IV ASDIRECTED 03/06/20 14:00 PTT,PARTIAL THROMBOPLSTIN TIME [COAG] Routine - Plan Plan:: ASSESSMENT AND PLAN OF CARE Bilateral Pulmonary Emboli -IV Fluids Normal Saline 75ml/hr -Heparin drip per protocol -Plan to transition to oral anticoagulation with Eliquis tomorrow -oxygen to keep sats greater than 95% -Ultrasound pending doppler bilateral legs-scheduled today -daily labs: CBC, BMP, INR, PT, PTT 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 has control of bowel and bladder. -pressure reduction mattress -assist with ADL as needed -ambulates with AFO's and wheelchair Tobacco Use - reports smokes at least 1/2 pack or more of cigarettes daily. denies any other drug use -order for albuterol neb and duo nebs as needed. -Nicotine patch 14 mg. daily -Nicorette gum as needed Anxiety disorder -continue outpatient medication Maintenance issues -Orders home meds: chronic medication -Nutrition: regular diet -Chin catheter -not indicated at this time -DVT has PE/DVT Heparin drip per protocol -PPI IV Protonix 40mg daily CODE STATUS: FULL Admission status: Admit to [address] [place] [address]. This patient will be admitted for inpatient services and is medically appropriate meeting medical necessity for inpatient admission as outlined in my documentation. I reasonably expect the patient will require inpatient services that span. Time over 2 midnights. I reasonably expect this patient to be discharged or transferred within 96 hours after admission to the critical access hospital. Disposition: home with Family Primary care provider: Daniel Parekh [facility] Hospitalist: Dr. Harrison
[2020-03-06] MEDS: Acetaminophen/HYDROcodone 325-5 MG Tab PO PRN ×3 (11:28→20:42)
[2020-03-06] MEDS: HYDROmorphone 0.5 MG/0.5 ML Syringe IVPUSH PRN ×3 (14:10→20:43)
[2020-03-06] MEDS: Sodium Chloride 0.9% 1,000 ML IV SCH (15:09)
[2020-03-07] MEDS: Heparin Sodium/D5W 25,000 UNITS/500 ML BAG IV SCH (00:16)
[2020-03-07] MEDS: HYDROmorphone 0.5 MG/0.5 ML Syringe IVPUSH PRN ×2 (00:20→23:18)
[2020-03-07] MEDS: Sodium Chloride 0.9% 1,000 ML IV SCH (03:21)
--- NOTE | 2020-03-07 06:58 | PCM.PN ---
- General Info Date of Service: 03/07/20 Subjective Update: Mr. Mix continues to experience significant pleuritic pain, related to his bilateral pulmonary emboli. Oxygenation has been stable and he is remained on room air. Vital signs have been stable and he has remained afebrile. Functional Status: Reports: Tolerating Diet, Urinating. Denies: Ambulating - Review of Systems General: Reports: Weakness, Fatigue. Denies: Fever, Chills Pulmonary: Reports: Shortness of Breath, Pleuritic Chest Pain. Denies: Cough, Sputum, Hemoptysis, Wheezing Cardiovascular: Reports: Chest Pain (Pleuritic pain). Denies: Dyspnea on Exertion, Orthopnea, PND, Edema, Lightheadedness Gastrointestinal: Reports: No Symptoms - Patient Data Vitals - Most Recent: Last Vital Signs Temp 97.2 F 03/07/20 03:00 Pulse 82 03/07/20 03:00 Resp 20 03/07/20 03:00 BP 110/68 03/07/20 03:00 Pulse Ox 94 L 03/07/20 03:00 Weight - Most Recent: 166 lb I&O - Last 24 Hours: Intake & Output 03/06/20 03/06/20 03/07/20 14:59 22:59 06:59 Intake Total 2724 2210 Balance 2724 2210 Lab Results Last 24 Hours: Laboratory Results - last 24 hr 03/06/20 03/06/20 03/06/20 Range/Units 08:18 13:59 20:42 WBC (4.5-11.0) K/uL RBC (4.30-5.90) M/uL Hgb (12.0-15.0) g/dL Hct (40.0-54.0) % MCV (80-98) fL MCH (27-31) pg MCHC (32-36) % Plt Count (150-400) K/uL Neut % (Auto) (36-66) % Lymph % (Auto) (24-44) % [place] % (Auto) (2-6) % Eos % (Auto) (2-4) % Baso % (Auto) (0-1) % PT (9.5-12.0) sec INR (0.80-1.20) APTT 55.8 H 43.6 H 51.2 H (27.0-36.0) sec Sodium (140-148) mmol/L Potassium (3.6-5.2) mmol/L Chloride (100-108) mmol/L Carbon Dioxide (21-32) mmol/L Anion Gap (5.0-14.0) mmol/L BUN (7-18) mg/dL Creatinine (0.8-1.3) mg/dL Est Cr Clr Drug Dosing mL/min Estimated GFR (MDRD) (>60) Glucose (74-106) mg/dL Calcium (8.5-10.1) mg/dL 03/07/20 03/07/20 03/07/20 Range/Units 03:02 03:02 03:02 WBC 6.7 (4.5-11.0) K/uL RBC 4.28 L (4.30-5.90) M/uL Hgb 12.9 D (12.0-15.0) g/dL Hct 40.4 (40.0-54.0) % MCV 94 (80-98) fL MCH 30 (27-31) pg MCHC 32 (32-36) % Plt Count 166 (150-400) K/uL Neut % (Auto) 54 (36-66) % Lymph % (Auto) 31 (24-44) % [place] % (Auto) 13 H (2-6) % Eos % (Auto) 2 (2-4) % Baso % (Auto) 0 (0-1) % PT 10.3 (9.5-12.0) sec INR 0.94 (0.80-1.20) APTT (27.0-36.0) sec Sodium 139 L (140-148) mmol/L Potassium 3.6 (3.6-5.2) mmol/L Chloride 105 (100-108) mmol/L Carbon Dioxide 28 (21-32) mmol/L Anion Gap 9.6 (5.0-14.0) mmol/L BUN 5 L (7-18) mg/dL Creatinine 1.0 (0.8-1.3) mg/dL Est Cr Clr Drug Dosing 107.72 mL/min Estimated GFR (MDRD) > 60 (>60) Glucose 101 (74-106) mg/dL Calcium 8.1 L (8.5-10.1) mg/dL 08/08/20 Range/Units 03:02 WBC (4.5-11.0) K/uL RBC (4.30-5.90) M/uL Hgb (12.0-15.0) g/dL Hct (40.0-54.0) % MCV (80-98) fL MCH (27-31) pg MCHC (32-36) % Plt Count (150-400) K/uL Neut % (Auto) (36-66) % Lymph % (Auto) (24-44) % [place] % (Auto) (2-6) % Eos % (Auto) (2-4) % Baso % (Auto) (0-1) % PT (9.5-12.0) sec INR (0.80-1.20) APTT 55.0 H (27.0-36.0) sec Sodium (140-148) mmol/L Potassium (3.6-5.2) mmol/L Chloride (100-108) mmol/L Carbon Dioxide (21-32) mmol/L Anion Gap (5.0-14.0) mmol/L BUN (7-18) mg/dL Creatinine (0.8-1.3) mg/dL Est Cr Clr Drug Dosing mL/min Estimated GFR (MDRD) (>60) Glucose (74-106) mg/dL Calcium (8.5-10.1) mg/dL Med Orders - Current: Current Medications Acetaminophen (Tylenol) 650 mg PO Q4H PRN PRN Reason: Pain (Mild 1-3)/fever Last Admin: 03/06/20 21:47 Dose: 650 mg Documented by: Hydrocodone Bitart/Acetaminophen ([place] 325-5 Mg) 2 tab PO Q4H PRN PRN Reason: Pain (moderate 4-6) Albuterol (Proventil Neb Soln) 2.5 mg NEB Q4H PRN PRN Reason: Shortness Of Breath/wheezing Apixaban (Eliquis) 10 mg PO BID [facility] Bisacodyl (Dulcolax) 5 mg PO DAILY PRN PRN Reason: Constipation Docusate Sodium (Colace) 100 mg PO BID PRN PRN Reason: Constipation Fluoxetine HCl (Prozac) 40 mg PO BID@0800,1200 [facility] Last Admin: 03/06/20 14:07 Dose: 40 mg Documented by: Hydromorphone HCl (Dilaudid) 0.5 mg IVPUSH Q2H PRN PRN Reason: Pain (severe 7-10) Last Admin: 03/07/20 00:20 Dose: 0.5 mg Documented by: Nicotine (Habitrol) 14 mg TRDERM DAILY [facility] Last Admin: 03/06/20 09:07 Dose: 14 mg Documented by: Nicotine Polacrilex (Nicorelief) 2 mg CHEW Q2H PRN PRN Reason: Other Ondansetron HCl (Zofran Odt) 4 mg PO Q6H PRN PRN Reason: Nausea able to take PO Ondansetron HCl (Zofran) 4 mg IV Q4H PRN PRN Reason: Nausea/Vomiting Discontinued Medications Hydrocodone Bitart/Acetaminophen ([place] 325-5 Mg) 2 tab PO Q4H PRN PRN Reason: Pain (moderate 4-6) Last Admin: 03/06/20 05:51 Dose: 2 tab Documented by: Hydrocodone Bitart/Acetaminophen ([place] 325-5 Mg) 1 tab PO Q4H PRN PRN Reason: Pain (moderate 4-6) Last Admin: 03/06/20 20:42 Dose: 1 tab Documented by: Heparin Sodium (Porcine) (Heparin Sodium) 5,000 units IVPUSH .BOLUS ONE; Protocol Stop: 03/06/20 04:00 Last Admin: 03/06/20 04:12 Dose: 5,000 units Documented by: Hydromorphone HCl (Dilaudid) 1 mg IVPUSH ONETIME ONE Stop: 03/06/20 04:52 Last Admin: 03/06/20 04:58 Dose: 1 mg Documented by: Sodium Chloride (Normal Saline) 100 mls @ 3 mls/sec IV ASDIRECTED [facility] Last Admin: 03/06/20 03:26 Dose: 3 mls/sec Documented by: Heparin Sodium/Dextrose (Heparin 25,000 Units In D5w 500 Ml) 25,000 units in 500 mls @ 24.494 mls/hr IV TITRATE [facility]; Protocol Last Admin: 03/07/20 00:16 Dose: 20 units/kg/hr, 27.216 mls/hr Documented by: Sodium Chloride (Normal Saline) 1,000 mls @ 125 mls/hr IV ASDIRECTED [facility] Last Admin: 03/06/20 06:36 Dose: 125 mls/hr Documented by: Sodium Chloride (Normal Saline) 1,000 mls @ 75 mls/hr IV ASDIRECTED [facility] Last Admin: 03/07/20 03:21 Dose: 75 mls/hr Documented by: Iopamidol (Isovue-370 (76%)) 100 ml IV . DIRECTED [facility] Last Admin: 03/06/20 03:26 Dose: 100 ml Documented by: Lorazepam (Ativan) 1 mg IVPUSH ONETIME ONE Stop: 03/06/20 02:05 Last Admin: 03/06/20 02:12 Dose: 1 mg Documented by: Lorazepam (Ativan) 1 mg IV Q6H PRN PRN Reason: Anxiety Pantoprazole Sodium (Protonix Iv) 40 mg IV DAILY [facility] Last Admin: 03/06/20 09:07 Dose: 40 mg Documented by: - Exam General: Alert, Oriented, Cooperative, Moderate Distress Lungs: Clear to Auscultation, Normal Respiratory Effort Cardiovascular: Regular Rate, Regular Rhythm, No Murmurs GI/Abdominal Exam: Soft, Non-Tender, No Organomegaly, No Distention Extremities: Non-Tender, No Pedal Edema Sepsis Event Note - Evaluation Sepsis Screening Result: No Definite Risk - Focused Exam Vital Signs: Vital Signs Temp Pulse Resp BP Pulse Ox 03/07/20 03:00 97.2 F 82 20 110/68 94 L 03/07/20 01:34 94 L 03/06/20 22:31 96.8 F L 74 14 122/66 97 03/06/20 19:28 95 03/06/20 19:00 96.4 F L 84 16 116/83 97 Date Exam was Performed: 03/07/20 Time Exam was Performed: 06:54 - Problem List Review Problem List Initiated/Reviewed/Updated: Yes - My Orders Last 24 Hours: My Active Orders 03/07/20 06:48 Acetaminophen/HYDROcodone [[place] 325-5 MG] 2 tab PO Q4H PRN 03/07/20 06:50 Convert IV to Saline Lock [OM.PC] Routine 03/07/20 09:00 Apixaban [Eliquis] 10 mg PO BID - Plan Plan:: ASSESSMENT AND PLAN OF CARE Bilateral Pulmonary Emboli-venous Doppler studies of both lower extremities did show popliteal DVT -Saline lock IV -Discontinue Heparin drip -Eliquis 10 mg p.o. twice daily x1 week then 5 mg p.o. twice daily thereafter -oxygen to keep sats greater than 95% -Echocardiogram on Monday -Pain medication as needed for pleuritic chest wall pain. 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 has control of bowel and bladder. -pressure reduction mattress -assist with ADL as needed -ambulates with AFO's and wheelchair Tobacco Use - reports smokes at least 1/2 pack or more of cigarettes daily. denies any other drug use -order for albuterol neb and duo nebs as needed. -Nicotine patch 14 mg. daily -Nicorette gum as needed Anxiety disorder -continue outpatient medication Maintenance issues -Orders home meds: chronic medication -Nutrition: regular diet -Chin catheter -not indicated at this time -DVT has PE/DVT Heparin drip per protocol -PPI IV Protonix 40mg daily CODE STATUS: FULL Admission status: Admit to [address] [place] [address] justification. This patient will be admitted for inpatient services and is medically appropriate meeting medical necessity for inpatient admission as outlined in my documentation. I reasonably expect the patient will require inpatient services that span. Time over 2 midnights. I reasonably expect this patient to be discharged or transferred within 96 hours after admission to the critical access hospital. Disposition: home with Family Primary care provider: Daniel Parekh [facility] Hospitalist: Dr. Harrison
[2020-03-07] MEDS: Acetaminophen/HYDROcodone 325-5 MG Tab PO PRN ×4 (07:24→21:21)
[2020-03-07] MEDS: FLUoxetine 20 MG Cap PO SCH ×2 (10:11→13:04)
[2020-03-07] MEDS: Apixaban 5 MG Tab PO SCH ×2 (10:12→21:22)
[2020-03-07] MEDS: Nicotine 14 MG/24 Hr Patch TRDERM SCH (10:15)
[2020-03-08] MEDS: Acetaminophen/HYDROcodone 325-5 MG Tab PO PRN ×2 (03:45→09:05)
--- NOTE | 2020-03-08 08:03 | PCM.DCSUM1 ---
Discharge Summary - Hospital Course Brief History: Mr. Mix is a 39-year-old gentleman who was admitted through the emergency department with pleuritic chest wall pain and shortness of breath secondary to bilateral pulmonary emboli. - Discharge Data Discharge Date: 03/08/20 Discharge Disposition: Home, Self-Care 01 Condition: Stable - Referral to Home Health Primary Care Physician: PCP None - Discharge Diagnosis/Problem(s) (1) Deep vein thrombosis SNOMED Code(s): 240532064 ICD Code: I82.409 - ACUTE EMBOLISM AND THOMBOS UNSP DEEP VN UNSP LOWER EXTREMITY Status: Acute Current Visit: Yes (2) Pulmonary embolism SNOMED Code(s): 78441847 ICD Code: I26.99 - OTHER PULMONARY EMBOLISM WITHOUT ACUTE COR PULMONALE Status: Acute Priority: High Current Visit: Yes Qualifiers: Pulmonary embolism type: multiple subsegmental (without acute cor pulmonale) Qualified Code(s): I26.94 - Multiple subsegmental pulmonary emboli without acute cor pulmonale (3) Polyneuropathy associated with underlying disease SNOMED Code(s): 451353537 ICD Code: G63 - POLYNEUROPATHY IN DISEASES CLASSIFIED ELSEWHERE Status: Acute Priority: High Current Visit: Yes (4) Cigarette smoker one half pack a day or less SNOMED Code(s): 462706674 ICD Code: F17.210 - NICOTINE DEPENDENCE, CIGARETTES, UNCOMPLICATED Status: Chronic Current Visit: Yes - Patient Summary/Data Hospital Course: Mr. Mix is a 39-year-old gentleman who was admitted through the emergency department with pleuritic chest pain and shortness of breath secondary to bilateral pulmonary emboli. He experienced relatively abrupt onset of pleuritic pain in his lower chest wall and upper abdomen. The symptoms were associated with shortness of breath, there was no cough or fever. He does have underlying polyneuropathy and is wheelchair-bound. He has not had recent surgery or injury to lower extremities. He has no prior history of deep vein thrombosis or pulmonary embolism. He is unsure about a family history of these events as he is adopted. On admission he was started on IV heparin after receiving a bolus of heparin. He was also given IV fluids for hydration. Pain medication was used to manage his pleuritic chest wall pain. He slowly improved over the next few days and after 2 days of IV heparin was converted to oral anticoagulation with Eliquis. He was started on a one-week course of Eliquis 10 mg twice daily, after that week is up he will go to 5 mg twice daily. He should be anticoagulated for a period of 3 months and after he is off of anticoagulation s aguilauld undergo evaluation with laboratory studies for hypercoagulable state. Venous Doppler study was obtained of the lower extremities and did show a popliteal deep vein thrombosis on the right. Echocardiogram will be obtained tomorrow as an outpatient to evaluate for elevated right-sided pressures and right heart failure. Follow-up appointment will be scheduled with his primary care provider within 1 week. Activity will be as tolerated and he will resume his usual diet. - Patient Instructions Diet: Usual Diet as Tolerated Activity: As Tolerated Other/Special Instructions: Please schedule follow-up appointment with primary care provider within 1 week. Outpatient echocardiogram tomorrow March 09. - Discharge Plan *PRESCRIPTION DRUG MONITORING PROGRAM REVIEWED*: Not Applicable *COPY OF PRESCRIPTION DRUG MONITORING REPORT IN PATIENT SOLA: Not Applicable Prescriptions/Med Rec: Apixaban [Eliquis] 10 mg PO BID #60 tablet Home Medications: Home Meds FLUoxetine HCl [Fluoxetine HCl] 40 mg PO BID 03/06/20 [History] Famotidine [Acid Controller] 10 mg PO BEDTIME 03/06/20 [History] Naproxen [Naprosyn] 500 mg PO DAILY 03/06/20 [History] hydrOXYzine HCL [Hydroxyzine HCl] 25 mg PO QID PRN 03/06/20 [History] Apixaban [Eliquis] 10 mg PO BID #60 tablet 03/08/20 [Rx] Referrals: Deanna Parekh PA-C [Ordering Only Provider] - - Discharge Summary/Plan Comment DC Time >30 min.: No - Patient Data Vitals - Most Recent: Last Vital Signs Temp 97.6 F 03/08/20 07:38 Pulse 76 03/08/20 07:38 Resp 16 03/08/20 07:38 BP 122/79 03/08/20 07:38 Pulse Ox 91 L 03/08/20 07:38 Weight - Most Recent: 166 lb I&O - Last 24 hours: Intake & Output 03/07/20 03/08/20 03/08/20 22:59 06:59 14:59 Intake Total 1000 Balance 1000 Med Orders - Current: Current Medications Acetaminophen (Tylenol) 650 mg PO Q4H PRN PRN Reason: Pain (Mild 1-3)/fever Last Admin: 03/06/20 21:47 Dose: 650 mg Documented by: Hydrocodone Bitart/Acetaminophen ([place] 325-5 Mg) 2 tab PO Q4H PRN PRN Reason: Pain (moderate 4-6) Last Admin: 03/08/20 03:45 Dose: 2 tab Documented by: Albuterol (Proventil Neb Soln) 2.5 mg NEB Q4H PRN PRN Reason: Shortness Of Breath/wheezing Apixaban (Eliquis) 10 mg PO BID [facility] Last Admin: 03/07/20 21:22 Dose: 10 mg Documented by: Bisacodyl (Dulcolax) 5 mg PO DAILY PRN PRN Reason: Constipation Docusate Sodium (Colace) 100 mg PO BID PRN PRN Reason: Constipation Last Admin: 03/07/20 11:37 Dose: 100 mg Documented by: Fluoxetine HCl (Prozac) 40 mg PO BID@0800,1200 [facility] Last Admin: 03/07/20 13:04 Dose: 40 mg Documented by: Hydromorphone HCl (Dilaudid) 0.5 mg IVPUSH Q2H PRN PRN Reason: Pain (severe 7-10) Last Admin: 03/07/20 23:18 Dose: 0.5 mg Documented by: Nicotine (Habitrol) 14 mg TRDERM DAILY [facility] Last Admin: 03/07/20 10:15 Dose: 14 mg Documented by: Nicotine Polacrilex (Nicorelief) 2 mg CHEW Q2H PRN PRN Reason: Other Ondansetron HCl (Zofran Odt) 4 mg PO Q6H PRN PRN Reason: Nausea able to take PO Ondansetron HCl (Zofran) 4 mg IV Q4H PRN PRN Reason: Nausea/Vomiting Discontinued Medications Hydrocodone Bitart/Acetaminophen ([place] 325-5 Mg) 2 tab PO Q4H PRN PRN Reason: Pain (moderate 4-6) Last Admin: 03/06/20 05:51 Dose: 2 tab Documented by: Hydrocodone Bitart/Acetaminophen ([place] 325-5 Mg) 1 tab PO Q4H PRN PRN Reason: Pain (moderate 4-6) Last Admin: 03/06/20 20:42 Dose: 1 tab Documented by: Heparin Sodium (Porcine) (Heparin Sodium) 5,000 units IVPUSH .BOLUS ONE; Protocol Stop: 03/06/20 04:00 Last Admin: 03/06/20 04:12 Dose: 5,000 units Documented by: Hydromorphone HCl (Dilaudid) 1 mg IVPUSH ONETIME ONE Stop: 03/06/20 04:52 Last Admin: 03/06/20 04:58 Dose: 1 mg Documented by: Sodium Chloride (Normal Saline) 100 mls @ 3 mls/sec IV ASDIRECTED [facility] Last Admin: 03/06/20 03:26 Dose: 3 mls/sec Documented by: Heparin Sodium/Dextrose (Heparin 25,000 Units In D5w 500 Ml) 25,000 units in 500 mls @ 24.494 mls/hr IV TITRATE [facility]; Protocol Last Admin: 03/07/20 00:16 Dose: 20 units/kg/hr, 27.216 mls/hr Documented by: Sodium Chloride (Normal Saline) 1,000 mls @ 125 mls/hr IV ASDIRECTED [facility] Last Admin: 03/06/20 06:36 Dose: 125 mls/hr Documented by: Sodium Chloride (Normal Saline) 1,000 mls @ 75 mls/hr IV ASDIRECTED [facility] Last Admin: 03/07/20 03:21 Dose: 75 mls/hr Documented by: Iopamidol (Isovue-370 (76%)) 100 ml IV . DIRECTED [facility] Last Admin: 03/06/20 03:26 Dose: 100 ml Documented by: Lorazepam (Ativan) 1 mg IVPUSH ONETIME ONE Stop: 03/06/20 02:05 Last Admin: 03/06/20 02:12 Dose: 1 mg Documented by: Lorazepam (Ativan) 1 mg IV Q6H PRN PRN Reason: Anxiety Pantoprazole Sodium (Protonix Iv) 40 mg IV DAILY [facility] Last Admin: 03/06/20 09:07 Dose: 40 mg Documented by: - Exam Quality Assessment: Reports: DVT Prophylaxis General: Reports: Alert, Oriented, Cooperative, Mild Distress Lungs: Reports: Clear to Auscultation, Normal Respiratory Effort, Decreased Breath Sounds Cardiovascular: Reports: Regular Rate, Regular Rhythm, No Murmurs GI/Abdominal Exam: Soft, Non-Tender, No Organomegaly, No Distention Extremities: Non-Tender, No Pedal Edema
[2020-03-08] MEDS: Apixaban 5 MG Tab PO SCH (09:01)
[2020-03-08] MEDS: FLUoxetine 20 MG Cap PO SCH (09:01)
[2020-03-08] MEDS: Nicotine 14 MG/24 Hr Patch TRDERM SCH (09:02)
== END 2020-03-08 09:30 | disposition home or self-care (01) | DRG 176 ==
LOC: JP.ED 01:51 → JP.MS 04:53
PROVIDERS: ADMIT Hospitalist; ATTEND Hospitalist
DX: I26.94 Multiple subsegmental thrombotic pulmonary emboli without acute cor pulmonale (principal); F17.200 Nicotine dependence, unspecified, uncomplicated; I82.431 Acute embolism and thrombosis of right popliteal vein; F41.9 Anxiety disorder, unspecified; F43.10 Post-traumatic stress disorder, unspecified; G62.89 Other specified polyneuropathies; G63 Polyneuropathy in diseases classified elsewhere; F17.210 Nicotine dependence, cigarettes, uncomplicated; I50.810 Right heart failure, unspecified; K21.9 Gastro-esophageal reflux disease without esophagitis; F41.0 Panic disorder [episodic paroxysmal anxiety]; F90.9 Attention-deficit hyperactivity disorder, unspecified type; Z79.899 Other long term (current) drug therapy
CPT/HCPCS: 36415; 71045 ×2; 71275; 80048; 83690; 84484; 85025; 85379; 96365; 96375; 96376; 99285; J1644 ×2; J2060; J7050; Q9967; 85610; 85730; 93970; 93970-26; 94762; 99221-AI; 99232; 99238; A9270-GY; C9113; J1170; J7030

== ENCOUNTER 2022-01-25 15:12 | Emergency (ER) | payer MEDICARE, MEDICAID ==
[2022-01-25 17:21] LABS: CORONAVIRUS COVID-19 NAA NEGATIVE (NEGATIVE)
[2022-01-25] MEDS ORDERED: Sodium Chloride 0.9% 100 ML IV ONE (17:43)
[2022-01-25] MEDS ORDERED: Sodium Chloride 0.9% 10 ML Syringe FLUSH ONE (17:43)
[2022-01-25] MEDS ORDERED: Iopamidol 755 Mg/ML 100 ML Bottle IV SCH (17:45)
== END 2022-01-25 20:47 | disposition home or self-care (01) ==
LOC: JP.ED 15:12
DX: J18.9 Pneumonia, unspecified organism (principal); K21.9 Gastro-esophageal reflux disease without esophagitis; F17.210 Nicotine dependence, cigarettes, uncomplicated; Z79.899 Other long term (current) drug therapy; Z20.822 Contact with and (suspected) exposure to COVID-19
CPT/HCPCS: 0241U; 36415; 71275; 80048; 85025; 85379; 99282; 99285; J3490; Q9967

== ENCOUNTER 2022-02-17 11:33 | Emergency (ER) | payer MEDICARE, MEDICAID ==
[2022-02-17 13:24] LABS: ESTIMATED GFR 98 mL/min (>60)
[2022-02-17 13:26] LABS: TROPONIN I HIGH SENSITIVITY < 4.0 pg/mL (<=60.3)
[2022-02-17] MEDS ORDERED: Albuterol/Ipratropium 3.0-0.5 MG/3 ML Neb Soln NEB ONE (14:07)
== END 2022-02-17 14:59 | disposition home or self-care (01) ==
LOC: JP.ED 11:33
DX: R06.02 Shortness of breath (principal); R06.01 Orthopnea; Z79.01 Long term (current) use of anticoagulants; Z87.891 Personal history of nicotine dependence; Z20.822 Contact with and (suspected) exposure to COVID-19
CPT/HCPCS: 36415; 70450; 71046; 80053; 83605; 83880; 84484; 85025; 85379; 93005; 93010; 94640; 99284; 99285; U0002; J7620

== ENCOUNTER 2022-07-14 20:52 | Emergency (ER) | payer MEDICARE, MEDICAID ==
[2022-07-14] MEDS ORDERED: Prochlorperazine 10 MG/2 ML SDV IVPUSH ONE (21:23)
[2022-07-14] MEDS ORDERED: Ketorolac 30 MG/ML SDV IVPUSH ONE (21:23)
[2022-07-14] MEDS ORDERED: diphenhydrAMINE 50 MG/ML SDV IVPUSH ONE (21:23)
[2022-07-14] MEDS ORDERED: Sodium Chloride 0.9% 10 ML Syringe FLUSH PRN (21:23)
[2022-07-14] MEDS ORDERED: Haloperidol Lactate 5 MG/ML SDV IVPUSH ONE (21:28)
[2022-07-14] MEDS ORDERED: Sodium Chloride 0.9% 1,000 ML IV SCH (21:30)
[2022-07-14 22:01] LABS: ESTIMATED GFR 72 mL/min (>60)
[2022-07-14 22:07] LABS: CORONAVIRUS COVID-19 NAA NEGATIVE (NEGATIVE)
== END 2022-07-14 23:32 | disposition home or self-care (01) ==
LOC: JP.ED 20:52
DX: G43.909 Migraine, unspecified, not intractable, without status migrainosus (principal); Z79.899 Other long term (current) drug therapy; Z20.822 Contact with and (suspected) exposure to COVID-19
CPT/HCPCS: 0241U; 36415; 80053; 85025; 86140; 96361; 96374; 96375; 99283; J0780; J1200; J1630; J1885; J3490; J7030

== ENCOUNTER 2024-04-17 02:30 | Emergency (ER) | payer MEDICARE, MEDICAID ==
[2024-04-17] MEDS ORDERED: Ketorolac 30 MG/ML SDV ONE (02:47)
[2024-04-17] MEDS ORDERED: droPERidol 5 MG/2 ML SDV ONE (02:47)
[2024-04-17] MEDS: Sodium Chloride 0.9% 1,000 ML IV ONE (02:48)
[2024-04-17] MEDS: droPERidol 5 MG/2 ML SDV IVPUSH ONE (02:50)
[2024-04-17] MEDS: Ketorolac 30 MG/ML SDV IVPUSH ONE (02:54)
== END 2024-04-17 08:40 | disposition home or self-care (01) ==
LOC: JP.ED 04:44
DX: G43.909 Migraine, unspecified, not intractable, without status migrainosus (principal); K21.9 Gastro-esophageal reflux disease without esophagitis; Z79.899 Other long term (current) drug therapy
CPT/HCPCS: 96361; 96374; 96375; 99283; J1790; J1885; J7030

== ENCOUNTER 2025-01-29 05:03 | Emergency (ER) | payer MEDICARE, MEDICAID ==
[2025-01-29 05:43] LABS: BASOPHILS ABSOLUTE AUTO 0.06 K/uL (0.00-0.10); BASOPHILS PERCENT AUTO 0.7 % (0.1-1.3); EOSINOPHILS ABSOLUTE AUTO 0.09 K/uL (0.00-0.40); EOSINOPHILS PERCENT AUTO 1.0 % (0.0-5.4); IMMATURE GRAN ABSOLUTE AUTO 0.04 K/uL (0.00-0.23); IMMATURE GRAN PERCENT AUTO 0.4 % (0.0-0.7); LYMPHOCYTES ABSOLUTE AUTO 2.95 K/uL (0.8-3.3); LYMPHOCYTES PERCENT AUTO 32.1 % (11.4-47.7); MONOCYTES ABSOLUTE AUTO 0.67 K/uL (0.20-0.90); MONOCYTES PERCENT AUTO 7.3 % (3.3-12.6); NEUTROPHILS ABSOLUTE AUTO 5.38 K/uL (1.0-7.6); NEUTROPHILS PERCENT AUTO 58.5 % (40.0-78.1); PLATELET COUNT,PLT 236 K/uL (130-375); RED BLOOD CELL COUNT 5.65 M/uL (4.14-5.76); WHITE BLOOD CELL COUNT,WBC 9.2 K/uL (3.2-11.0)
[2025-01-29 06:08] LABS: A/G RATIO 1.0 (1.2-2.2); ALANINE AMINOTRANSFERASE,ALT 69 U/L (12-78); ASPARTATE AMNIOTRANSFERASE,AST 26 U/L (15-37); BILIRUBIN TOTAL 0.3 mg/dL (0.2-1.0); BLOOD UREA NITROGEN,BUN 5 mg/dL (7-18); CARBON DIOXIDE,CO2 27 mmol/L (21-32); CHLORIDE,CL 100 mmol/L (100-108); CREATININE 1.1 mg/dL (0.8-1.3); ESTIMATED GFR 86 mL/min (>60); GLUCOSE RANDOM 119 mg/dL (74-106); POTASSIUM,K 3.4 mmol/L (3.6-5.2); PROTEIN TOTAL,TP 8.0 g/dL (6.4-8.2); SODIUM,NA 139 mmol/L (140-148); TSH ULTRASENSITIVE 5.365 uIU/mL (0.358-3.740)
[2025-01-29 08:45] LABS: AMPHETAMINES SCREEN, URINE NEGATIVE (NEGATIVE); METHADONE SCREEN, URINE NEGATIVE (NEGATIVE); METHAMPHETAMINES SCREEN, URINE NEGATIVE (NEGATIVE); OXYCODONE SCREEN,URINE NEGATIVE (NEGATIVE); PROPOXYPHENE SCREEN,URINE NEGATIVE (NEGATIVE); THC SCREEN,URINE 50 NG/ML NEGATIVE (NEGATIVE)
[2025-01-30] MEDS ORDERED: buPROPion 150 MG Tab.SR PO SCH (09:00)
[2025-01-30] MEDS ORDERED: Cyanocobalamin (Vitamin B12) 1,000 MCG Tab PO SCH (09:00)
[2025-01-30] MEDS ORDERED: Cholecalciferol (Vitamin D3) 50,000 Unit Cap PO SCH (09:00)
[2025-01-30] MEDS ORDERED: Vitamin B6-pyridOXINE 50 MG Tab PO SCH (09:00)
== END 2025-01-30 02:20 | disposition home or self-care (01) ==
LOC: JP.ED 05:03
DX: R45.851 Suicidal ideations (principal); K21.9 Gastro-esophageal reflux disease without esophagitis; Z79.51 Long term (current) use of inhaled steroids; Z79.899 Other long term (current) drug therapy
CPT/HCPCS: 36415; 80053; 80305; 80307; 84443; 85025; 99285; A9270; 99284